=== PATIENT | male | born 1955 | race Caucasian/White ===

== ENCOUNTER 2017-12-12 15:44 | Inpatient (IN) | payer OTHER ==
[~2017-12-12] VITALS: Ht 177.8 cm; Wt 142.4 kg
[2017-12-12 15:45] VITALS: BP_SYST 126
[2017-12-12] MEDS ORDERED: ACETAMINOPHEN 500 MG TABLET PO ONE (16:30)
[2017-12-12] MEDS ORDERED: CLINDAMYCIN 900 mg/50mL D5W 50 ML IV ONE (16:30)
[2017-12-12] MEDS ORDERED: NS 1000 ML IV.SOLN IV ONE (16:30)
[2017-12-12 16:57] LABS: HEMATOCRIT 43.2 % (36-54); MEAN CORPUSCULAR HEMOGLOBIN 31 pg (27-31); MEAN CORPUSCULAR HGB CONC 35 % (32-36); MEAN CORPUSCULAR VOLUME 88 fL (79.0-98.0); PLATELET COUNT (AUTO) 224 K/uL (130-430); RED BLOOD CELL COUNT(AUTO) 4.91 MIL/uL (4.2-6.2); RED CELL DISTRIBUTION WIDTH 13.9 % (9.0-15.0)
[2017-12-12 16:59] LABS: WHITE BLOOD COUNT (AUTO) 22.1 K/uL (4.8-10.8)
[2017-12-12 17:01] LABS: CALCIUM 9.4 mg/dL (8.4-11.0); CREATININE 0.91 mg/dL (0.55-1.30); POTASSIUM 3.5 mmol/L (3.5-5.1)
[2017-12-12 17:04] LABS: INR 1.1 (0.80-1.20)
[2017-12-12 17:06] LABS: TOTAL BILIRUBIN 0.7 mg/dL (0.0-1.0)
[2017-12-12 17:09] LABS: BAND % (MANUAL) 10 % (0-6); BASOPHILS % (MANUAL) 0 % (0-2); EOSINOPHILS % (MANUAL) 0 % (0-7); LYMPHOCYTES % (MANUAL) 2 % (20-46); MONOCYTES % (MANUAL) 4 % (0-11)
[2017-12-12 17:37] LABS: BILIRUBIN,URINE 2+ (NEGATIVE); BLOOD, URINE 3+ (NEGATIVE); CLARITY/URINE CLEAR (CLEAR); COLOR,URINE YELLOW (YELLOW); GLUCOSE,URINE NEGATIVE (NEGATIVE); KETONES,URINE 2+ (NEGATIVE); LEUKOCYTE ESTERASE ,URINE NEGATIVE (NEGATIVE); NITRITE, URINE POSITIVE (NEGATIVE); PROTEIN URINE 1+ (NEGATIVE)
[2017-12-12 17:45] LABS: BACTERIA,URINE MODERATE /HPF (None Seen); MUCUS,URINE 2+ /LPF (None Seen)
[2017-12-12 19:10] VITALS: BP_SYST 118
[2017-12-12] MEDS: NACL 0.9% 1,000 ML IV SCH (19:53)
[2017-12-12] MEDS ORDERED: LOSA50TA3 PO (20:58)
[2017-12-12] MEDS ORDERED: NOR10 PO (20:58)
[2017-12-12] MEDS ORDERED: NACL 0.9% 1,000 ML IV SCH (21:55)
[2017-12-12] MEDS ORDERED: LEVOFLOXACIN 500 MG/D5W 100 ML IV ONE ×2 (22:00→23:04)
[2017-12-12] MEDS ORDERED: ALBUTEROL SULFATE 0.083% 2.5 MG/3 ML VIAL.NEB INH PRN (22:00)
[2017-12-12] MEDS ORDERED: NACL 0.9% 1,000 ML IV ONE (22:45)
[2017-12-12] MEDS ORDERED: VANCOMYCIN HCL 1 GM/NS PREMIX 250 ML IV ONE (22:45)
[2017-12-12] MEDS ORDERED: PIPERACILLIN/TAZO 2.25G/DEX-IS 50 ML IV SCH (23:00)
[2017-12-12] MEDS ORDERED: VANCOMYCIN HCL 1000 MG/VIAL IV ONE (23:04)
[2017-12-12] MEDS ORDERED: PIPERACILLIN/TAZOBACTAM 2.25 GM VIAL IV ONE (23:05)
[2017-12-12] MEDS: MORPHINE 2 MG/ML INJ. SYRINGE IVP PRN (23:16)
[2017-12-12] MEDS: ONDANSETRON HCL 4 MG/2 ML VIAL IVP PRN (23:23)
[2017-12-13 00:24] VITALS: BP_SYST 118
[2017-12-13] MEDS ORDERED: PIPERACILLIN/TAZOBACTAM 3.375 GM/VIAL (ZOSYN) IV ONE (01:29)
[2017-12-13] MEDS: NACL 0.9% 1,000 ML IV SCH ×4 (01:40→20:26)
[2017-12-13] MEDS: MORPHINE 2 MG/ML INJ. SYRINGE IVP PRN ×2 (03:05→20:26)
[2017-12-13] MEDS ORDERED: VANCOMYCIN HCL 1000 MG/VIAL IV ONE (03:18)
[2017-12-13] MEDS: VANCOMYCIN HCL 2,000 MG in NS 500 ML IV ONE ×3 (03:19)
[2017-12-13 04:26] VITALS: BP_SYST 138
[2017-12-13] MEDS: PIPERACILLIN/TAZO 3.375/DEX-IS 50 ML IV SCH ×5 (05:27→23:05)
[2017-12-13 07:57] LABS: HEMATOCRIT 37.2 % (36-54); HEMOGLOBIN 12.9 g/dL (14.0-18.0); LYMPHOCYTES # (AUTO) 0.6 K/uL (1.0-5.5); LYMPHOCYTES % (AUTO) 3.6 % (20.5-51.5); MEAN CORPUSCULAR HEMOGLOBIN 31 pg (27-31); MEAN CORPUSCULAR HGB CONC 35 % (32-36); MEAN CORPUSCULAR VOLUME 88 fL (79.0-98.0); MONOCYTES # (AUTO) 0.7 K/uL (0.0-1.0); MONOCYTES % (AUTO) 4.7 % (1.7-9.3); NEUTROPHILS # (AUTO) 14.1 K/uL (1.8-7.7); NEUTROPHILS % (AUTO) 91.7 % (40.0-70.0); PLATELET COUNT (AUTO) 169 K/uL (130-430); RED BLOOD CELL COUNT(AUTO) 4.22 MIL/uL (4.2-6.2); WHITE BLOOD COUNT (AUTO) 15.4 K/uL (4.8-10.8)
[2017-12-13 08:15] LABS: CALCIUM 8.5 mg/dL (8.4-11.0); CREATININE 0.83 mg/dL (0.55-1.30); POTASSIUM 3.5 mmol/L (3.5-5.1); TOTAL BILIRUBIN 0.5 mg/dL (0.0-1.0)
[2017-12-13 08:26] VITALS: BP_SYST 122
[2017-12-13] MEDS: LOSARTAN POTASSIUM 50 MG TABLET (COZAAR) PO SCH ×2 (09:30→20:25)
[2017-12-13] MEDS: amLODIPine BESYLATE 10 MG TABLET PO SCH (09:31)
[2017-12-13 11:41] VITALS: BP_SYST 147
[2017-12-13] MEDS: NS IV SCH (14:02)
[2017-12-13] MEDS: GENTAMICIN SULFATE IV SCH (14:02)
[2017-12-13 15:17] VITALS: BP_SYST 135
[2017-12-13 19:30] VITALS: BP_SYST 123
[2017-12-13] MEDS ORDERED: TEMAZEPAM 15 MG CAPSULE PO PRN (20:15)
[2017-12-14 01:15] VITALS: BP_SYST 111
[2017-12-14] MEDS: GENTAMICIN SULFATE IV SCH ×2 (02:47→14:23)
[2017-12-14] MEDS: NS IV SCH ×2 (02:47→14:23)
[2017-12-14] MEDS: NACL 0.9% 1,000 ML IV SCH ×3 (04:49→17:29)
[2017-12-14] MEDS: PIPERACILLIN/TAZO 3.375/DEX-IS 50 ML IV SCH ×4 (06:41→23:10)
[2017-12-14] MEDS: amLODIPine BESYLATE 10 MG TABLET PO SCH (08:15)
[2017-12-14] MEDS: LOSARTAN POTASSIUM 50 MG TABLET (COZAAR) PO SCH ×2 (08:15→21:24)
[2017-12-14 08:32] VITALS: BP_SYST 112
[2017-12-14 11:22] VITALS: BP_SYST 124
[2017-12-14 15:02] VITALS: BP_SYST 131
[2017-12-14 19:27] VITALS: BP_SYST 121
[2017-12-14] MEDS: MORPHINE 2 MG/ML INJ. SYRINGE IVP PRN (21:19)
[2017-12-15] MEDS: NACL 0.9% 1,000 ML IV SCH ×3 (00:20→13:19)
[2017-12-15 01:12] VITALS: BP_SYST 135
[2017-12-15] MEDS: GENTAMICIN SULFATE IV SCH ×2 (02:17→14:00)
[2017-12-15] MEDS: NS IV SCH ×2 (02:17→14:00)
[2017-12-15] MEDS: PIPERACILLIN/TAZO 3.375/DEX-IS 50 ML IV SCH ×2 (06:17→13:19)
[2017-12-15 06:42] LABS: BASOPHILS % (AUTO) 0.5 % (0.0-2.0); EOSINOPHILS # (AUTO) 0.3 K/uL (0.0-0.4); EOSINOPHILS % (AUTO) 4.8 % (0.0-4.0); HEMATOCRIT 37.3 % (36-54); HEMOGLOBIN 12.8 g/dL (14.0-18.0); LYMPHOCYTES # (AUTO) 1.1 K/uL (1.0-5.5); LYMPHOCYTES % (AUTO) 18.9 % (20.5-51.5); MEAN CORPUSCULAR HEMOGLOBIN 30 pg (27-31); MEAN CORPUSCULAR HGB CONC 34 % (32-36); MEAN CORPUSCULAR VOLUME 89 fL (79.0-98.0); MONOCYTES # (AUTO) 0.5 K/uL (0.0-1.0); MONOCYTES % (AUTO) 8.5 % (1.7-9.3); NEUTROPHILS # (AUTO) 3.7 K/uL (1.8-7.7); NEUTROPHILS % (AUTO) 67.3 % (40.0-70.0); PLATELET COUNT (AUTO) 164 K/uL (130-430); RED BLOOD CELL COUNT(AUTO) 4.21 MIL/uL (4.2-6.2); RED CELL DISTRIBUTION WIDTH 14.2 % (9.0-15.0); WHITE BLOOD COUNT (AUTO) 5.6 K/uL (4.8-10.8)
[2017-12-15 06:53] LABS: ALBUMIN 2.9 g/dL (3.4-4.8); CALCIUM 8.8 mg/dL (8.4-11.0); CREATININE 0.59 mg/dL (0.55-1.30); POTASSIUM 3.3 mmol/L (3.5-5.1); TOTAL BILIRUBIN 0.3 mg/dL (0.0-1.0)
[2017-12-15] MEDS: amLODIPine BESYLATE 10 MG TABLET PO SCH (08:03)
[2017-12-15] MEDS: LOSARTAN POTASSIUM 50 MG TABLET (COZAAR) PO SCH (08:03)
[2017-12-15 09:32] VITALS: BP_SYST 135
[2017-12-15] MEDS: ONDANSETRON HCL 4 MG/2 ML VIAL IVP PRN (10:28)
[2017-12-15 11:30] VITALS: BP_SYST 135
[2017-12-15 11:57] VITALS: BP_SYST 128
[2017-12-15] MEDS ORDERED: AMOX-426 PO (15:04)
[2017-12-15 15:08] VITALS: BP_SYST 128
[2017-12-15 16:00] VITALS: BP_SYST 122
== END 2017-12-15 15:45 | disposition home or self-care (01) | DRG 872 ==
LOC: SED 15:44 → STU 18:55 → SMU 12-15 10:45
PROVIDERS: ADMIT Internal Medicine; ATTEND Internal Medicine
DX: A41.9 Sepsis, unspecified organism (principal); K80.00 Calculus of gallbladder with acute cholecystitis without obstruction; N10 Acute pyelonephritis; L03.115 Cellulitis of right lower limb; Z68.42 Body mass index [BMI] 45.0-49.9, adult; B95.1 Streptococcus, group B, as the cause of diseases classified elsewhere; G89.29 Other chronic pain; M54.9 Dorsalgia, unspecified; E66.01 Morbid (severe) obesity due to excess calories; E11.9 Type 2 diabetes mellitus without complications; Z87.442 Personal history of urinary calculi; Z88.8 Allergy status to other drugs, medicaments and biological substances
CPT/HCPCS: 36415; 71045; 76770; 78226; 80053; 80170-TC; 81000-TC; 82962; 83605; 84484; 85007; 85025; 85027; 85610-TC; 85730-TC; 87040-TC; 87086; 87186-TC; 93005; 93306; 93970; 94660; 94760; 96365; 99285; A9537; J1580; J1956; J2270; J2405; J2543; J3370; J3490; J7030; J7040; J7050; J7060